=== PATIENT | female | born 1980 | race Caucasian/White ===

== ENCOUNTER 2020-05-27 08:41 | Outpatient (CLI) | payer BC ==
[2020-05-27 18:20] LABS: SARS-CoV-2 PCR by NAA Not Detected (NotDetected)
== END 2020-05-27 08:42 | disposition home or self-care (01) ==
LOC: CSHLAB 08:41
PROVIDERS: ATTEND Surgery
DX: Z20.822 Contact with and (suspected) exposure to COVID-19 (principal)
CPT/HCPCS: 87635; U0003; U0005

== ENCOUNTER 2020-05-30 11:05 | Day surgery (SDC) | payer BC ==
[2020-05-29 11:28] VITALS: BMI 26.5
[2020-05-30] MEDS ORDERED: Lidocaine 1% MPF 2 ML VIAL ONE (11:42)
[2020-05-30] MEDS ORDERED: EPINEPHrine 1 MG/ML AMP ONE (13:30)
[2020-05-30] MEDS ORDERED: Midazolam HCl 2 mg/2 ml Vial ONE ×2 (14:02→14:05)
[2020-05-30] MEDS ORDERED: PROPOFOL 20 ML ONE (14:04)
[2020-05-30] MEDS ORDERED: Dexamethasone 20 MG/5 ML VIAL ONE (14:05)
[2020-05-30] MEDS ORDERED: Lidocaine 1% PF 5 ML VIAL ONE (14:05)
[2020-05-30] MEDS ORDERED: Ketorolac Tromethamine 30 MG/ML VIAL ONE (14:05)
[2020-05-30] MEDS ORDERED: Ondansetron PF 4 MG/2 ML Vial ONE (14:05)
[2020-05-30] MEDS ORDERED: Rocuronium Bromide 10 MG/ML (10ML VIAL) ONE (14:05)
[2020-05-30] MEDS ORDERED: Glycopyrrolate 0.2 MG/ML 5 ML SYRINGE ONE (14:05)
[2020-05-30] MEDS ORDERED: Fentanyl 100 MCG/2 ML VIAL ONE ×2 (14:05→17:27)
[2020-05-30] MEDS ORDERED: PHENYLEPHRINE-NS 100 MCG/ML 10 ML SYRINGE ONE (14:36)
[2020-05-30] MEDS ORDERED: ePHEDrine 50 MG/ML VIAL ONE (14:53)
[2020-05-30] MEDS ORDERED: HYDROmorphone 0.5 MG/0.5 ML SYRINGE ONE ×4 (15:03→16:58)
[2020-05-30] MEDS ORDERED: Morphine 2 MG/ML VIAL ONE ×3 (15:23→17:16)
[2020-05-30] MEDS ORDERED: Promethazine HCl 25 MG/ML VIAL ONE (15:35)
[2020-05-30] MEDS ORDERED: Morphine 4 MG/ML VIAL ONE (15:58)
== END 2020-05-30 18:30 | disposition home or self-care (01) ==
LOC: CSHSDC 11:05
PROVIDERS: ATTEND Surgery
PROC: 0FT44ZZ Resection of Gallbladder, Percutaneous Endoscopic Approach (ICD-10-PCS; principal; 2020-05-30)
DX: K81.2 Acute cholecystitis with chronic cholecystitis (principal); Z79.899 Other long term (current) drug therapy; Z90.710 Acquired absence of both cervix and uterus; Z90.49 Acquired absence of other specified parts of digestive tract
CPT/HCPCS: 88304; J0171; J0690; J1100; J1170; J1885; J2250; J2270; J2405; J2550; J2704; J3010; J3490